=== PATIENT | male | born 1985 | race Caucasian/White ===

== ENCOUNTER 2017-12-26 19:21 | Emergency (ER) | payer OTHER ==
[2017-12-26 19:35] VITALS: BP 144/78
[2017-12-26] MEDS ORDERED: HYDROCODONE/ACETAMINOPHEN 5-325 MG (6 TAB/ER DISP) PO PRN (20:29)
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
== END 2017-12-26 20:45 | disposition home or self-care (01) ==
LOC: ER 19:21
DX: G89.29 Other chronic pain (principal); M54.6 Pain in thoracic spine; Z87.81 Personal history of (healed) traumatic fracture
CPT/HCPCS: 99283